=== PATIENT | male | born 1960 | race Two or more races ===

== ENCOUNTER 2022-05-11 22:03 | Emergency (ER) | payer MEDICAID, MEDICARE ==
[~2022-05-11] VITALS: Ht 165.1 cm; Wt 63.5 kg
--- NOTE | 2022-05-11 22:21 | NUR ---
BIBS FOR VOLUNTARY ADMISSION TO PSYCH FACILITY DENIES S/I H/I. PATIENT ALERT AND ORIENTED X3. AMBULATORY WITH NON LABORED BREATHIGN IN BED 18 SEEN BY MD AT TRIAGE. ALL BELONGINGS TAKEN AND PLACED IN LOCKER.
--- NOTE | 2022-05-11 22:22 | NUR ---
UNABLE TO PROVIDE URINE AT THIS TIME.
--- NOTE | 2022-05-11 22:24 | NUR ---
SECURITY AT BEDSIDE FOR WANDING.
[2022-05-11 23:03] LABS: BASOPHILS % (AUTO) 0.5 % (0.0-2.0); EOSINOPHILS % (AUTO) 0.3 % (0.0-6.0); HEMATOCRIT 38 % (39-51); HEMOGLOBIN 12.7 g/dL (13.5-17.5); LYMPHOCYTES % (AUTO) 15.9 % (20.0-44.0); MEAN CORPUSCULAR HGB CONC 33 g/dl (31.0-36.0); MEAN CORPUSCULAR VOLUME 92 fL (80-96); MONOCYTES # (AUTO) 0.7 K/uL (0.1-1.30); MONOCYTES % (AUTO) 10.3 % (2.0-12.0); NEUTROPHILS # (AUTO) 4.6 K/uL (1.8-8.9); PLATELET COUNT (AUTO) 218 K/uL (150-450); RED BLOOD CELL COUNT(AUTO) 4.16 MIL/uL (4.5-6.0); WHITE BLOOD COUNT (AUTO) 6.4 K/uL (4.3-11.0)
[2022-05-11 23:17] LABS: CALCIUM, SERUM 8.5 mg/dL (8.5-10.1); CARBON DIOXIDE 26 mmol/L (21-32); CHLORIDE 103 mmol/L (98-107); CREATININE 1.5 mg/dL (0.6-1.3); GLUCOSE 130 mg/dL (74-106); SODIUM SERUM 137 mmol/L (136-145); UREA NITROGEN, BLOOD 19 mg/dL (7-18)
[2022-05-11 23:22] LABS: ALANINE AMINOTRANSFERASE 83 U/L (12-78); ALBUMIN 3.2 g/dL (3.4-5.0); ALKALINE PHOSPHATASE 71 U/L (46-116); ASPARTATE AMINOTRANSFERASE 65 U/L (15-37); BILIRUBIN,DIRECT 0.1 mg/dL (0.0-0.2); BILIRUBIN,TOTAL 0.3 mg/dL (0.2-1.0); TOTAL PROTEIN, SERUM 6.9 g/dL (6.4-8.2)
[2022-05-11 23:23] LABS: ACETAMINOPHEN 0 ug/ml (10-30); ALCOHOL, BLOOD < 3 mg/dL (0-0)
--- NOTE | 2022-05-12 00:30 | NUR ---
URINE COLLECTED AND SENT TO LAB.
[2022-05-12 00:44] LABS: BILIRUBIN,URINE NEGATIVE (NEGATIVE); COLOR,URINE YELLOW (YELLOW); LEUKOCYTE ESTERASE ,URINE NEGATIVE (NEGATIVE); NITRITE, URINE NEGATIVE (NEGATIVE); PH,URINE 6.5 (5.0-8.0); PROTEIN,URINE NEGATIVE (NEGATIVE); UGLUCOSE NEGATIVE (NEGATIVE); UROBILINOGEN,URINE 0.2 EU/dL (0.2)
[2022-05-12 00:54] LABS: BACTERIA,URINE None seen /HPF (None Seen); SQUAMOUS EPITHELIAL CELL,UR Few /HPF (None Seen); WBC,URINE 0-2 /HPF (0-3)
--- NOTE | 2022-05-12 01:08 | NUR ---
FACESHEET AND CLINICALS FAXED TO [facility].
[2022-05-12] MEDS ORDERED: MENTHOL/CETYLPYRD (CEPACOL) 1 LOZ LOZENGE PO ONE (01:30)
[2022-05-12] MEDS ORDERED: MENTHOL/CETYLPYRD (CEPACOL) 1 LOZ LOZENGE ONE (01:35)
[2022-05-12] MEDS ORDERED: HALOPERIDOL 5 MG TABLET ONE (01:50)
[2022-05-12] MEDS ORDERED: HALOPERIDOL 1 MG TABLET PO ONE (02:00)
--- NOTE | 2022-05-12 05:24 | NUR ---
Patient discharged to home in stable condition no longer wants to proceed with voluntary admission, denies s/i & h/i. Written and verbal after care instructions given. Patient verbalizes understanding of instruction.
[2022-05-12 05:25] VITALS: BP 133/76
== END 2022-05-12 05:25 | disposition home or self-care (01) ==
LOC: ER 22:13
DX: F99 Mental disorder, not otherwise specified (principal); R79.89 Other specified abnormal findings of blood chemistry; I10 Essential (primary) hypertension; E78.00 Pure hypercholesterolemia, unspecified; Z20.822 Contact with and (suspected) exposure to COVID-19
CPT/HCPCS: 36415; 80048; 80076; 80143; 80307; 80320; 81001; 85025; 87426; 99283; C9803; G0480